=== PATIENT | female | born 1960 | race Caucasian/White ===

== ENCOUNTER 2022-09-21 08:36 | Outpatient (CLI) | payer OTHER ==
[2022-09-21 09:50] LABS: Anion Gap 12 mmol/L (10-20); BUN (Urea Nitrogen) 15 mg/dL (9.8-20.1); Calc. Creatinine Clearance 0 mL/min (70-130); Calcium 9.8 mg/dL (7.8-10.44); Carbon Dioxide 26 mmol/L (23-31); Chloride 106 mmol/L (98-107); Estimated GFR 61; Glucose 93 mg/dL (80-115); Hemoglobin 14.2 g/dL (12.0-15.5); Potassium 4.4 mmol/L (3.5-5.1); Sodium 140 mmol/L (136-145)
== END 2022-09-21 08:37 | disposition home or self-care (01) ==
LOC: CSHLAB 08:36
PROVIDERS: ATTEND Otolaryngology Otolaryngic Allergy
DX: Z01.818 Encounter for other preprocedural examination (principal)
CPT/HCPCS: 80048; 85014; 85018; 93005; 93010

== ENCOUNTER 2022-09-26 08:23 | Day surgery (SDC) | payer OTHER ==
[2022-09-22 16:27] VITALS: BMI 26.5
[2022-09-26] MEDS ORDERED: PROPOFOL 20 ML ONE (11:56)
== END 2022-09-26 13:31 | disposition home or self-care (01) ==
LOC: CSHSDC 08:23
PROVIDERS: ATTEND Otolaryngology Otolaryngic Allergy
PROC: 4A1ZXQZ Monitoring of Sleep, External Approach (ICD-10-PCS; principal; 2022-09-26)
DX: G47.33 Obstructive sleep apnea (adult) (pediatric) (principal); K21.9 Gastro-esophageal reflux disease without esophagitis; Z79.899 Other long term (current) drug therapy
CPT/HCPCS: J2704

== ENCOUNTER 2022-11-09 08:37 | Outpatient (CLI) | payer OTHER | END 2022-11-09 08:38 | disposition home or self-care (01) | LOC: CSHLAB 08:37 | PROVIDERS: ATTEND Otolaryngology Otolaryngic Allergy | DX: Z01.812 Encounter for preprocedural laboratory examination (principal); G47.33 Obstructive sleep apnea (adult) (pediatric) | CPT/HCPCS: 85014 ==

== ENCOUNTER 2022-11-14 06:18 | Day surgery (SDC) | payer OTHER ==
[2022-11-09 14:45] VITALS: BMI 26.5
[2022-11-14] MEDS ORDERED: Rocuronium Bromide 10 MG/ML (10ML VIAL) ONE (08:01)
[2022-11-14] MEDS ORDERED: Ondansetron PF 4 MG/2 ML Vial ONE (08:01)
[2022-11-14] MEDS ORDERED: PROPOFOL 20 ML ONE ×2 (08:01→10:12)
[2022-11-14] MEDS ORDERED: Lidocaine 1% PF 5 ML VIAL ONE (08:01)
[2022-11-14] MEDS ORDERED: Midazolam HCl 2 mg/2 ml Vial ONE (08:01)
[2022-11-14] MEDS ORDERED: Dexamethasone 20 MG/5 ML VIAL ONE (08:02)
[2022-11-14] MEDS ORDERED: Fentanyl 100 MCG/2 ML VIAL ONE (08:02)
[2022-11-14] MEDS ORDERED: EPINEPHrine 1 MG/ML AMP ONE (08:10)
[2022-11-14] MEDS ORDERED: CEFAZOLIN 1 GM VIAL ONE (08:14)
[2022-11-14] MEDS ORDERED: PHENYLEPHRINE-NS 100 MCG/ML 10 ML SYRINGE ONE (08:44)
[2022-11-14] MEDS ORDERED: ePHEDrine Sulfate 50 MG/10 ML VIAL ONE (08:56)
[2022-11-14] MEDS ORDERED: Glycopyrrolate 0.2 MG/ML 5 ML SYRINGE ONE (08:57)
== END 2022-11-14 12:05 | disposition home or self-care (01) ==
LOC: CSHSDC 06:18
PROVIDERS: ATTEND Otolaryngology Otolaryngic Allergy
DX: G47.33 Obstructive sleep apnea (adult) (pediatric) (principal)
CPT/HCPCS: 70360; C1787; C1820; C1898; J0171; J0690; J1100; J2250; J2405; J2704; J3010